=== PATIENT | female | born 1965 | race Caucasian/White ===

== ENCOUNTER → 2016-09-24 | Outpatient (CLI) | payer OTHER ==
[~2016-09-24] MED LIST: ARTH650T6 PO; BACL10TA PO; FLUO40CA PO; LEVO150T7 PO; LISI-519 PO; MELO-1 PO; MELO7.5T4 PO; METR0.7512 VAGINAL; OMEP20TA PO
[2016-09-24 09:50] LABS: AUTOMATED NEUTROPHIL # 4.8 TH/MM3 (1.8-7.7); BASOPHIL # 0.1 TH/MM3 (0-0.2); BASOPHIL % 1.2 % (0.0-2.0); EOSINOPHIL # 0.4 TH/MM3 (0-0.4); EOSINOPHIL % 5.4 % (0.0-4.0); HEMO FLAGS DIFF FINAL; LYMPH % 18.8 % (9.0-44.0); LYMPHOCYTE # 1.3 TH/MM3 (1.0-4.8); MEAN CELL VOLUME 90.3 FL (80.0-100.0); MEAN CORPUSCULAR HEMOGLOBIN 30.6 PG (27.0-34.0); MEAN CORPUSCULAR HGB CONC 33.9 % (32.0-36.0); MONO % 6.5 % (0.0-8.0); NEUT % 68.1 % (16.0-70.0); PLATELET COUNT 285 TH/MM3 (150-450); RED BLOOD COUNT 4.54 MIL/MM3 (4.00-5.30); RED CELL DISTRIBUTION WIDTH 13.5 % (11.6-17.2)
[2016-09-24 10:23] LABS: ANION GAP 5 MEQ/L (5-15); AST (GOT) 38 U/L (15-37); BICARBONATE 27.9 MEQ/L (21.0-32.0); BLOOD UREA NITROGEN 17 MG/DL (7-18); CHLORIDE 102 MEQ/L (98-107); GLOMERULAR FILTRATION RATE 95 ML/MIN (>89); GLUCOSE,FASTING 87 MG/DL (74-99); POTASSIUM 4.5 MEQ/L (3.5-5.1); SODIUM (NA) 135 MEQ/L (136-145)
[2016-09-24 10:34] LABS: ALKALINE PHOSPHATASE 91 U/L (45-117); ALT (GPT) 51 U/L (10-53); HDL CHOLESTEROL 56.1 MG/DL (40.0-60.0); LDL CHOLESTEROL 123 MG/DL (0-99); TOTAL BILIRUBIN ADULT 0.5 MG/DL (0.2-1.0)
[2016-09-24 11:20] LABS: HEMOGLOBIN A1a 1.1 %; HEMOGLOBIN A1b 1.8 %; HEMOGLOBIN Ao 85.3 %; HEMOGLOBIN P3 3.9 %
== END ==
LOC: CLAB 08:08
PROVIDERS: ATTEND Family Medicine
DX: G62.9 Polyneuropathy, unspecified (principal); Q45.3 Other congenital malformations of pancreas and pancreatic duct; E66.9 Obesity, unspecified
CPT/HCPCS: 36415; 80053; 80061; 83036; 84443; 85025

== ENCOUNTER → 2016-10-15 | Outpatient (CLI) | payer OTHER | LOC: CLAB 11:24 | PROVIDERS: ATTEND Internal Medicine Gastroenterology | DX: R59.1 Generalized enlarged lymph nodes (principal); K86.9 Disease of pancreas, unspecified | CPT/HCPCS: 36415; 82378; 86301; 86304 ==

== ENCOUNTER → 2016-11-19 | Outpatient (CLI) | payer OTHER ==
[~2016-11-19] MED LIST changes: -MELO7.5T4 PO; -METR0.7512 VAGINAL
== END ==
LOC: CLAB 12:11
PROVIDERS: ATTEND Nurse Practitioner Family
DX: E03.9 Hypothyroidism, unspecified (principal)
CPT/HCPCS: 36415; 84443

== ENCOUNTER → 2016-11-28 | Day surgery (SDC) | payer OTHER ==
[~2016-11-28] VITALS: Ht 160 cm; Wt 128.8 kg
[~2016-11-28] MED LIST changes: +*ONDANSETRON 4 MG VIAL PERIprocedural Use ONLY ONE; +*morphine SULFATE 8 MG/ML PERIprocedure ONLY ONE; +CHLORHEXIDINE GLUCONATE 2 % 1 PACK (2 CLOTHS) TOPICAL PRN; +DEXAMETHASONE SOD PHOS 4 MG/ML VIAL IV ONE; +DO NOT ADM ANY ANTICOAGULANT DRUGS PRN; +GLYCOPYRROLATE 1 MG/5 ML VIAL IV PUSH ONE; +INSULIN HUMAN REGULAR 1,000 UNITS/10 ML VIAL SQ PRN; +LACTATED RINGER'S 1000 ML IV PRN; +LIDOCAINE HCL 1% PF 5 ML AMPULE OTHER ONE; +METOPROLOL TARTRATE 25 MG TAB PO PRN; +NEOSTIGMINE 3 MG/3 ML SYR IV ONE; +ONDANSETRON HCL 4 MG/2 ML VIAL IV PUSH ONE; +PHENYLEPH/NS 1000 MCG/10 ML SYR IV ONE; +POVIDONE IODINE 5% (ANTISEPSIS KIT) 4 APPLICATIONS EACH NARE PRN; +PROPOFOL 200 MG/20 ML AMP IV ONE; +PROPOFOL 200 MG/20 ML AMP ONE; +ROCURONIUM INJ 50 MG/5 ML VIAL IV ONE; +SODIUM CHLORID 0.9% 500 ML IV PRN
--- NOTE | 2016-11-28 12:57 | PD.PROCEDR ---
GI Procedure PROCEDURE PERFORMED EUS with FNA INDICATION FOR PROCEDURE Abnormal imaging revealing multiple enlarged lymph nodes and a questionable pancreatic mass PROCEDURE: The procedure, risks and benefits were discussed with Ms. Irwin and informed consent was obtained. Anesthesia sedated her with Diprivan. She was placed in the left lateral decubitus position. Endoscopic ultrasound: The Pentax videoscope was introduced through the oropharynx and advanced to the second portion of the duodenum FINDINGS: The endosonographic appearance of the pancreas and the pancreatic duct was basically unremarkable in its head body and tail Mediastinal lymphadenopathy noted adjacent to the heart samples were obtained with fine-needle aspiration needle A para-aortic hypoechoic mass noted at the level of the celiac trunk of unclear significance more samples were taken from this area A hypoechoic mass noted in the hilar region measuring about 2 x 2 and a half adjacent to the portal vein and this too was biopsied with the FNA needle ESTIMATED BLOOD LOSS: None SPECIMENS REMOVED: Multiple lymph node biopsies COMPLICATIONS: None IMPRESSION: Unremarkable pancreas Multiple lymphadenopathies (mediastinal, para-aortic, and hilar) PLAN: Await biopsies Follow-up with GI in 3-4 weeks Con Myrick MD Nov 28, 2016 12:57
--- NOTE | 2016-11-28 13:45 | RADRPT ---
EXAM DATE/TIME: 11/28/2016 13:12 [facility] COMPARISON: No previous studies available for comparison. INDICATIONS : Upper abdomen pain after endoscopy ORAL CONTRAST: No oral contrast ingested. RADIATION DOSE: 15.58 CTDIvol (mGy) MEDICAL HISTORY : Hypertension. Uterin SURGICAL HISTORY : section. ENCOUNTER: Initial ACUITY: 1 day PAIN SCALE: 8/10 LOCATION: ABDOMEN TECHNIQUE: Volumetric scanning of the abdomen was performed. Using automated exposure control and adjustment of the mA and/or kV according to patient size, radiation dose was kept as low as reasonably achievable to obtain optimal diagnostic quality images. DICOM format image data is available electronically for review and comparison. FINDINGS: LOWER LUNGS: The visualized lower lungs are clear. LIVER: Homogeneous density without lesion. There is no dilation of the biliary tree. Ill-defined high densi ty material within the gallbladder which may reflect sludge +/- stones or blood products if biliary m anipulation was performed during endoscopy. SPLEEN: Normal size without lesion. PANCREAS: Within normal limits. KIDNEYS: Normal in size and shape. There is no contour deforming abnormality, stone, or hydronephrosis. ADRENAL GLANDS: Within normal limits. AORTA/RETROPERITONEAL: There is no aneurysm or lymphadenopathy. BOWEL/MESENTERY: The stomach and visualized small and large bowel demonstrate no abnormality. Specifically, no free ai r, pneumatosis, or free fluid. MUSCULOSKELETAL: Within normal limits for patient age. CONCLUSION: 1. No free air or evidence for bowel perforation status post endoscopy. 2. Ill-defined high density material within the gallbladder a reflect sludge +/- stones or less likel y blood products if biliary manipulation was performed during endoscopy. Ruddy Becerril MD on November 28, 2016 at 13:39 Board Certified Radiologist. This report was verified electronically.
[2016-11-28 14:24] VITALS: TEMP 97.6
[2016-11-28 14:55] VITALS: BP 127/58; PULSE 72; RESP 18; O2SAT 96
--- NOTE | 2016-11-28 21:37 | EKG ---
Date Performed: 11/28/2016 Time Performed: 09:47:02 PTAGE: 51 years EKG: Sinus rhythm LOW QRS VOLTAGE IN PRECORDIAL LEADS BORDERLINE ECG NO PREVIOUS TRACING DOCTOR: Bigg Collier Interpretating Date/Time 11/28/2016 21:36:26
== END | disposition home or self-care (01) ==
LOC: HSDC 08:29
PROVIDERS: ATTEND Internal Medicine Gastroenterology
DX: D36.0 Benign neoplasm of lymph nodes (principal); I10 Essential (primary) hypertension; R53.83 Other fatigue; R10.10 Upper abdominal pain, unspecified; Z87.891 Personal history of nicotine dependence
CPT/HCPCS: 00740; 43242; 74150; 93005; J1100; J2270; J2370; J2405; J2710; J3010; J7120

== ENCOUNTER → 2017-01-16 | Outpatient (CLI) | payer OTHER ==
[~2017-01-16] MED LIST changes: -*ONDANSETRON 4 MG VIAL PERIprocedural Use ONLY ONE; -*morphine SULFATE 8 MG/ML PERIprocedure ONLY ONE; -CHLORHEXIDINE GLUCONATE 2 % 1 PACK (2 CLOTHS) TOPICAL PRN; -DEXAMETHASONE SOD PHOS 4 MG/ML VIAL IV ONE; -DO NOT ADM ANY ANTICOAGULANT DRUGS PRN; -GLYCOPYRROLATE 1 MG/5 ML VIAL IV PUSH ONE; -INSULIN HUMAN REGULAR 1,000 UNITS/10 ML VIAL SQ PRN; -LACTATED RINGER'S 1000 ML IV PRN; -LIDOCAINE HCL 1% PF 5 ML AMPULE OTHER ONE; -MELO-1 PO; +MELO15TA20 PO; -METOPROLOL TARTRATE 25 MG TAB PO PRN; -NEOSTIGMINE 3 MG/3 ML SYR IV ONE; -OMEP20TA PO; +OMEP20TA93 PO; -ONDANSETRON HCL 4 MG/2 ML VIAL IV PUSH ONE; +PERC5TAB12 PO; -PHENYLEPH/NS 1000 MCG/10 ML SYR IV ONE; -POVIDONE IODINE 5% (ANTISEPSIS KIT) 4 APPLICATIONS EACH NARE PRN; -PROPOFOL 200 MG/20 ML AMP IV ONE; -PROPOFOL 200 MG/20 ML AMP ONE; -ROCURONIUM INJ 50 MG/5 ML VIAL IV ONE; -SODIUM CHLORID 0.9% 500 ML IV PRN
[2017-01-16 11:32] LABS: AUTOMATED NEUTROPHIL # 5.1 TH/MM3 (1.8-7.7); BASOPHIL # 0.1 TH/MM3 (0-0.2); BASOPHIL % 1.1 % (0.0-2.0); EOSINOPHIL # 0.2 TH/MM3 (0-0.4); EOSINOPHIL % 3.1 % (0.0-4.0); HEMATOCRIT 40.6 % (35.0-46.0); HEMO FLAGS DIFF FINAL; LYMPH % 23.4 % (9.0-44.0); LYMPHOCYTE # 1.8 TH/MM3 (1.0-4.8); MEAN CELL VOLUME 89.4 FL (80.0-100.0); MEAN CORPUSCULAR HEMOGLOBIN 30.6 PG (27.0-34.0); MEAN CORPUSCULAR HGB CONC 34.2 % (32.0-36.0); MONO % 6.7 % (0.0-8.0); NEUT % 65.7 % (16.0-70.0); PLATELET COUNT 316 TH/MM3 (150-450); RED BLOOD COUNT 4.55 MIL/MM3 (4.00-5.30); WHITE BLOOD COUNT 7.8 TH/MM3 (4.0-11.0)
[2017-01-16 11:39] LABS: APTT (PATIENT) 30.1 SEC (24.3-30.1)
[2017-01-16 11:52] LABS: ANION GAP 10 MEQ/L (5-15); AST (GOT) 35 U/L (15-37); BICARBONATE 20.5 MEQ/L (21.0-32.0); BLOOD UREA NITROGEN 13 MG/DL (7-18); CHLORIDE 104 MEQ/L (98-107); GLOMERULAR FILTRATION RATE 92 ML/MIN (>89); GLUCOSE,FASTING 103 MG/DL (74-99); POTASSIUM 4.2 MEQ/L (3.5-5.1); SODIUM (NA) 134 MEQ/L (136-145)
[2017-01-16 11:53] LABS: ALT (GPT) 41 U/L (10-53)
[2017-01-16 11:55] LABS: ALKALINE PHOSPHATASE 87 U/L (45-117); TOTAL BILIRUBIN ADULT 0.4 MG/DL (0.2-1.0)
--- NOTE | 2017-01-16 11:58 | RADRPT ---
EXAM DATE/TIME: 01/16/2017 11:31 [facility] COMPARISON: CT ABDOMEN W/O CONTRAST, November 28, 2016, 13:12. INDICATIONS : Evaluate for pneumonia, pneumothorax or communicable disease. Pre op for hysterectomy 01-27-17 MEDICAL HISTORY : Hypertension. SURGICAL HISTORY : section. ENCOUNTER: Initial ACUITY: 1 day PAIN SCORE: 0/10 LOCATION: Bilateral chest FINDINGS: PA and lateral views of the chest demonstrate a normal-sized cardiac silhouette. There is a focal par enchymal opacity in the left upper lobe. Otherwise, no effusion or pneumothorax is identified. Bones and soft tissues demonstrate no acute finding. CONCLUSION: Focal parenchymal opacity in the left upper lobe of uncertain etiology. One consideration is parenchy mal scar, therefore, correlating with older chest x-rays would be helpful. However, if none are avail able suggest chest CT for further characterization. Art Hough MD on January 16, 2017 at 11:54 Board Certified Radiologist. This report was verified electronically.
--- NOTE | 2017-01-18 13:12 | EKG ---
Date Performed: 01/16/2017 Time Performed: 10:57:00 PTAGE: 51 years EKG: Sinus rhythm PREVIOUS TRACING : 11/28/2016 09.47 Since previous tracing, QRS voltage slightly larger; but otherwise, no significant change. DOCTOR: Mario Atwood Interpretating Date/Time 01/18/2017 13:11:33
== END ==
LOC: CPRE 10:35
PROVIDERS: ATTEND Obstetrics & Gynecology Gynecologic Oncology
DX: Z01.810 Encounter for preprocedural cardiovascular examination (principal); Z01.811 Encounter for preprocedural respiratory examination; Z01.812 Encounter for preprocedural laboratory examination; C54.1 Malignant neoplasm of endometrium
CPT/HCPCS: 36415; 71020; 80053; 85025; 85610; 85730; 93005

== ENCOUNTER → 2017-03-25 | Outpatient (CLI) | payer OTHER ==
[2017-03-25 14:07] LABS: CREATININE 0.67 MG/DL (0.50-1.00)
== END ==
LOC: CLAB 12:57
PROVIDERS: ATTEND Internal Medicine Gastroenterology
DX: R10.9 Unspecified abdominal pain (principal); K86.9 Disease of pancreas, unspecified
CPT/HCPCS: 36415; 82565; 84520

== ENCOUNTER → 2017-04-04 | Outpatient (CLI) | payer OTHER ==
[~2017-04-04] MED LIST changes: +IOHEXOL 350 MG/ML 10 ML VIAL (for RAD DIAG) IVCONTRAST ONE
--- NOTE | 2017-04-04 14:53 | RADRPT ---
EXAM DATE/TIME: 04/04/2017 13:28 [facility] COMPARISON: CHEST PA & LAT, January 16, 2017, 11:31. CT ABDOMEN W/O CONTRAST, November 28, 2016, 13:12. INDICATIONS : Abdominal pain, pancreatic mass. IV CONTRAST: 97 cc Omnipaque 350 (iohexol) IV ORAL CONTRAST: Prescribed oral contrast ingested. RADIATION DOSE: 21.05 CTDIvol (mGy) MEDICAL HISTORY : Hypertension. Uterine cancer. SURGICAL HISTORY : Hysterectomy. section. ENCOUNTER: Initial ACUITY: 1 day PAIN SCALE: 5/10 LOCATION: abdomen TECHNIQUE: Volumetric scanning of the abdomen and pelvis was performed. Using automated exposure control and ad justment of the mA and/or kV according to patient size, radiation dose was kept as low as reasonably achievable to obtain optimal diagnostic quality images. DICOM format image data is available electro nically for review and comparison. FINDINGS: LOWER LUNGS: The visualized lower lungs are clear. LIVER: There are multiple tiny low density liver lesions identified the largest about a centimeter in size a nd most clustered in the dome of the right lobe. These are nonspecific, however, although the previou s study was a noncontrast exam, I believe its likely that these were present previously. SPLEEN: Normal size without lesion. PANCREAS: Within normal limits. KIDNEYS: Small cyst in the lower pole anterior cortex of the right kidney. No suspicious mass, stone or hydron ephrosis. ADRENAL GLANDS: Within normal limits. VASCULAR: There is no aortic aneurysm. BOWEL/MESENTERY: The stomach, small bowel, and colon demonstrate no acute abnormality. There is no free intraperitone al air or fluid. ABDOMINAL WALL: Within normal limits. RETROPERITONEUM: There are couple mildly enlarged celiac region lymph nodes which appear to been present previously bu t may be minimally more prominent the largest measuring just over 15 mm in size. An aortocaval lymph node just below the level of the left renal vein measures about 15 mm in size, also slightly increase d from prior exam. BLADDER: No wall thickening or mass. REPRODUCTIVE: Uterus surgically absent. No evidence of pelvic mass or free fluid. INGUINAL: There is no lymphadenopathy or hernia. MUSCULOSKELETAL: Within normal limits for patient age. CONCLUSION: Multiple tiny low density liver lesions were likely present previously however seen to better advanta ge on today's contrasted exam. Further characterization with hepatic MRI with Eovist would be recomme nded. Mildly prominent celiac region and para-aortic lymph nodes as described. Art Hartley MD on April 04, 2017 at 14:32 Board Certified Radiologist. This report was verified electronically.
== END ==
LOC: HRAD 12:05
PROVIDERS: ATTEND Internal Medicine Gastroenterology
DX: R10.9 Unspecified abdominal pain (principal); K86.9 Disease of pancreas, unspecified
CPT/HCPCS: 74177; Q9967

== ENCOUNTER → 2017-06-26 | Outpatient (CLI) | DX: R10.9 Unspecified abdominal pain (principal); K86.9 Disease of pancreas, unspecified ==

== ENCOUNTER → 2017-07-24 | Outpatient (CLI) | payer OTHER ==
[~2017-07-24] MED LIST changes: -IOHEXOL 350 MG/ML 10 ML VIAL (for RAD DIAG) IVCONTRAST ONE
--- NOTE | 2017-07-24 14:15 | RADRPT ---
EXAM DATE: 07/24/2017 1:45 PM EDT AGE/SEX: 52 years / Female INDICATIONS: Pain. Slip and fall about one year ago. CLINICAL DATA: This is the patient's initial encounter. Patient reports that signs and symptoms have been present for > 1 year and indicates a pain score of 8/10. MEDICAL/SURGICAL HISTORY: Hypertension. Hysterectomy. Tonsillectomy. section. Wrist sx. COMPARISON: No prior exams available for comparison. TECHNIQUE: Multiplanar, multisequence MRI of the lumbar spine was performed without contrast. Patie nt was scanned in a sitting position; neutral, flexion, and extension scans were performed in the sa gittal plane. FINDINGS: Vertebra: Homogeneous signal. Normal alignment. Conus: Normal level and configuration. A 1.6 cm cyst involving the right kidney anteriorly at the lower pole. T12-L1: The thecal sac has a normal diameter. No evidence of disc bulge or protrusion. The neural foramina are patent bilaterally. L1-L2: The thecal sac has a normal diameter. No evidence of disc bulge or protrusion. The neural foramina are patent bilaterally. L2-L3: The thecal sac has a normal diameter. No evidence of disc bulge or protrusion. The neural foramina are patent bilaterally. L3-L4: The thecal sac has a normal diameter. No evidence of disc bulge or protrusion. The neural foramina are patent bilaterally. L4-L5: Mild disc desiccation without disc space narrowing. The thecal sac has a normal diameter. N o evidence of disc bulge or protrusion. The neural foramina are patent bilaterally. L5-S1: The thecal sac has a normal diameter. No evidence of disc bulge or protrusion. The neural foramina are patent bilaterally. CONCLUSION: 1. Unremarkable exam. Electronically signed by: José Luis Aguirre MD 07/24/2017 2:13 PM EDT
== END ==
LOC: HRAD 12:54
PROVIDERS: ATTEND Family Medicine
DX: M54.5 Low back pain (principal); G89.29 Other chronic pain
CPT/HCPCS: 72148

== ENCOUNTER → 2017-07-24 | Outpatient (CLI) | payer OTHER ==
[2017-07-24 10:17] LABS: FOLATE GREATER THAN 20.0 NG/ML (3.1-17.5)
[2017-07-24 10:20] LABS: RHEUMATOID FACTOR SCREEN NEGATIVE (NEGATIVE)
== END ==
LOC: CLAB 08:48
DX: F33.8 Other recurrent depressive disorders (principal); M19.90 Unspecified osteoarthritis, unspecified site; Z11.59 Encounter for screening for other viral diseases
CPT/HCPCS: 36415; 80074; 82607; 82746; 84439; 84443; 86038; 86430

== ENCOUNTER 2017-09-18 10:49 | Observation (INO) ==
[2017-09-18] MEDS ORDERED: Sod Chloride 0.9% Inj 1,000 ML IV.SIG ONE (11:54)
--- NOTE | 2017-09-18 12:27 | ED ---
HPI General Chief complaint: Weakness Stated complaint: weakness Time Seen by Provider: 09/18/17 11:15 Source: patient Mode of arrival: ambulatory Limitations: no limitations History of Present Illness HPI Narrative: 52-year-old female that presents to the ED for evaluation of weakness. Going on since November but worsening the past week. Per patient she is "passing out" last time two days ago where she was possibly out for two hours. States weakness to her legs and feels like she is going to fall asleep at any time as well as pass out. Currently being worked up for possible cancer. Follows with Dr Arnold who is doing biopsies of patient lymph nodes which apparently showed positive on a PET scan recently performed. She was diagnosed with endometrial cancer and had a hysterectomy. Patient follows with Dr. Correa as well and apparently has had some lesions on her liver as well which were concerning and she had what appears to be biopsy did show changes consistent with cirrhosis and hepatitis C. They also noted that she had some lymph nodes that were inflamed and some of the bones as well as on the chest and neck of unclear etiology and this is where they are during the next biopsy. Per patient will be done until October. Per patient she has no insurance that she does not have a primary care doctor. Per patient she states that she feels like she is feeling when she had sepsis last time. She states that she has low grade temperatures. She feels like she has body aches. She denies any chest pain but states having some shortness of breath or comes all of a sudden. Denies any urinary or bowel movement issues. No other medical issues at this time. She does have a history of hypothyroidism. Per patient her pain currently is 6 out of 10 all over. Related Data Home Medications Medication Instructions Recorded Confirmed baclofen 10 mg PO DAILY 08/29/17 09/18/17 citalopram [Celexa] 10 mg PO DAILY 08/29/17 09/18/17 levothyroxine 1 tab PO DAILY 08/29/17 09/18/17 lisinopril 5 mg PO DAILY 08/29/17 09/18/17 omeprazole 1 cap PO DAILY 08/29/17 09/18/17 Allergies Allergy/AdvReac Type Severity Reaction Status Date / Time No Known Allergies Allergy Verified 09/18/17 11:16 Review of Systems ROS: all other systems reviewed are negative [facility] Medical History Medical History Arthritis (Acute) Endometrial cancer (Acute) GERD (gastroesophageal reflux disease) (Acute) Hepatitis C (Acute) History of hysterectomy (Acute) Hx of headache (Acute) Hypothyroidism (Acute) Presence of surgical screw in left hand (Acute) Sleep apnea (Acute) Surgical History Surgical History H/O eye surgery (Acute) Hx of tonsillectomy (Acute) Previous section (Acute) Social History Social History Substance History: No History of Abuse Second Hand Smoke Exposure: No Smoking Status: Former smoker Tobacco Type: Cigarettes How Often Do You Have a Drink Containing Alcohol: 2 to 4 times a month Recent Travel in [facility] within the Last 8 Weeks: No Recent Out of Country Travel within the Last 8 Weeks: No Immunization History Tetanus Immunization: >5 Years Hx Influenza Vaccine This Season: Yes Exam Narrative Exam Narrative: GENERAL: Well appearing but obese SKIN: Focused skin assessment warm/dry. HEAD: Atraumatic. Normocephalic. EYES: Pupils equal and round. No scleral icterus. No injection or drainage. ENT: No nasal bleeding or discharge. Mucous membranes pink and moist. Tongue is midline. No uvula deviation. NECK: Trachea midline. No JVD. CARDIOVASCULAR: Regular rate and rhythm. No murmur appreciated. RESPIRATORY: No accessory muscle use. Clear to auscultation. Breath sounds equal bilaterally. GASTROINTESTINAL: Abdomen soft, non-tender, nondistended. Hepatic and splenic margins not palpable. MUSCULOSKELETAL: No obvious deformities. No clubbing. No cyanosis. No edema. Full range of motion of the upper and lower extremities bilaterally. 2+ pulses bilaterally. NEUROLOGICAL: Awake and alert. No obvious cranial nerve deficits. Motor grossly within normal limits. Normal speech. PSYCHIATRIC: Appropriate mood and affect; insight and judgment normal. Course Initial Documented Vital Signs Temperature 98.3 F 09/18/17 11:00 Pulse Rate 98 H 09/18/17 11:00 Respiratory Rate 17 09/18/17 11:00 Blood Pressure 139/101 H 09/18/17 11:00 Pulse Oximetry 94 L 09/18/17 11:00 Last Documented Vital Signs Temperature 97.9 F 09/18/17 13:36 Pulse Rate 62 09/18/17 13:36 Respiratory Rate 20 09/18/17 13:36 Blood Pressure 113/70 09/18/17 13:36 Pulse Oximetry 98 09/18/17 13:36 Medical Decision Making REANNA Attestation REANNA supervised visit: Yes Attestation: I, Dr. light, have reviewed the advance practice practitioner's documentation and am in agreement, met with the patient face to face, made the diagnosis, and the medical decision making was done by me. *My assessment and Findings: 52-year-old female presents with weakness and shortness of breath. Patient getting extensive outpatient workup here in the ER found to have elevated troponin. CT pulmonary without PE. She will be admitted for further care. MDM Narrative Medical decision making narrative: 52-year-old female that presents to the ED for evaluation of weakness. Patient was properly examined and was found to have signs and symptoms consistent with weakness. Unclear etiology at this time. Labs and imaging ordered. Labs and imaging for the most part looked well with exception of positive d-dimmer and troponin. CTA ordered and negative for PE. Unclear etiology, but per patient on cardiac history. Recommendation is to admit the patient for further cardiac eval and possible oncology eval. patient agree with admission. Case discussed with the residents agreed admission to their service. Differential Diagnosis Differential Diagnosis: Generalized weakness versus sepsis versus UTI versus thyroid disease versus electrolyte abnormality versus cancer Medical Records Medical records reviewed: Yes I reviewed the patient's medical records. Lab Data Lab results reviewed: Yes I reviewed the patient's lab results. Lab results narrative: UA negative troponin of 0.19 d-dimmer slightly elevated Result diagrams: 09/18/17 12:00 09/18/17 12:00 Lab Results 09/18/17 09/18/17 09/18/17 Range/Units 12:00 12:00 12:00 WBC 7.2 (4.0-11.0) th/mm3 RBC 4.62 (4.00-5.30) mil/mm3 Hgb 13.9 (11.6-15.3) gm/dL Hct 41.0 (35.0-46.0) % MCV 88.9 (80.0-100.0) fL MCH 30.0 (27.0-34.0) pg MCHC 33.8 (32.0-36.0) % RDW 16.2 (11.6-17.2) % Plt Count 334 D (150-450) th/mm3 MPV 9.3 (7.0-11.0) fL Neut % (Auto) 49.9 (16.0-70.0) % Lymph % (Auto) 33.6 (9.0-44.0) % Coles % (Auto) 9.4 H (0.0-8.0) % Eos % (Auto) 4.8 H (0.0-4.0) % Baso % (Auto) 2.3 H (0.0-2.0) % Neut # (Auto) 3.6 (1.8-7.7) th/mm3 Lymph # (Auto) 2.4 (1.0-4.8) th/mm3 Coles # (Auto) 0.7 (0.0-0.9) th/mm3 Eos # (Auto) 0.3 (0.0-0.4) th/mm3 Baso # (Auto) 0.2 (0.0-0.2) th/mm3 WBC Differential . Differential Comment Auto diff final D-Dimer Quant (PE/DVT) 0.61 H (0.00-0.50) mg/L FEU Sodium 134 L (136-145) meq/L Potassium 4.6 (3.5-5.1) meq/L Chloride 102 (98-107) meq/L Carbon Dioxide 24.0 (21.0-32.0) meq/L Anion Gap 8 (5-15) meq/L BUN 13 (7-18) mg/dL Creatinine 0.70 (0.50-1.00) mg/dL Estimated GFR 89 (>89) mL/min Random Glucose 89 (74-106) mg/dL Lactic Acid (0.4-2.0) mmol/L Calcium 9.6 (8.5-10.1) mg/dL Magnesium 2.0 (1.5-2.5) mg/dL Total Bilirubin 0.5 (0.2-1.0) mg/dL AST 57 H (15-37) U/L ALT 44 (10-53) U/L Alkaline Phosphatase 88 (45-117) U/L Troponin I 0.15 H (0.02-0.05) ng/mL Total Protein 9.5 H (6.4-8.2) g/dL Albumin 3.6 (3.4-5.0) g/dL TSH 4.720 H (0.358-3.740) uIU/mL Urine Color (Yellw/Straw) Urine Clarity (Clear) Urine pH (5.0-8.5) Ur Specific Burton (1.002-1.035) Urine Protein (Neg-Trace) mg/dL Urine Glucose (UA) (Negative) mg/dL Urine Ketones (Negative) mg/dL Urine Occult Blood (Negative) Urine Nitrate (Negative) Urine Bilirubin (Negative) Urine Urobilinogen (Less than 2) mg/dL Ur Leukocyte Esterase (Negative) Urine RBC (0-3) /hpf Urine WBC (0-5) /hpf Ur Squamous Epith Cells (0-5) /hpf Urine Bacteria (None) /hpf Hyaline Casts (0-3) /lpf Micro UA Comment Urine Culture Comments 09/18/17 09/18/17 Range/Units 12:00 12:27 WBC (4.0-11.0) th/mm3 RBC (4.00-5.30) mil/mm3 Hgb (11.6-15.3) gm/dL Hct (35.0-46.0) % MCV (80.0-100.0) fL MCH (27.0-34.0) pg MCHC (32.0-36.0) % RDW (11.6-17.2) % Plt Count (150-450) th/mm3 MPV (7.0-11.0) fL Neut % (Auto) (16.0-70.0) % Lymph % (Auto) (9.0-44.0) % Coles % (Auto) (0.0-8.0) % Eos % (Auto) (0.0-4.0) % Baso % (Auto) (0.0-2.0) % Neut # (Auto) (1.8-7.7) th/mm3 Lymph # (Auto) (1.0-4.8) th/mm3 Coles # (Auto) (0.0-0.9) th/mm3 Eos # (Auto) (0.0-0.4) th/mm3 Baso # (Auto) (0.0-0.2) th/mm3 WBC Differential Differential Comment D-Dimer Quant (PE/DVT) (0.00-0.50) mg/L FEU Sodium (136-145) meq/L Potassium (3.5-5.1) meq/L Chloride (98-107) meq/L Carbon Dioxide (21.0-32.0) meq/L Anion Gap (5-15) meq/L BUN (7-18) mg/dL Creatinine (0.50-1.00) mg/dL Estimated GFR (>89) mL/min Random Glucose (74-106) mg/dL Lactic Acid 1.3 (0.4-2.0) mmol/L Calcium (8.5-10.1) mg/dL Magnesium (1.5-2.5) mg/dL Total Bilirubin (0.2-1.0) mg/dL AST (15-37) U/L ALT (10-53) U/L Alkaline Phosphatase (45-117) U/L Troponin I (0.02-0.05) ng/mL Total Protein (6.4-8.2) g/dL Albumin (3.4-5.0) g/dL TSH (0.358-3.740) uIU/mL Urine Color Yellow (Yellw/Straw) Urine Clarity Clear (Clear) Urine pH 6.0 (5.0-8.5) Ur Specific Burton 1.010 (1.002-1.035) Urine Protein Negative (Neg-Trace) mg/dL Urine Glucose (UA) Negative (Negative) mg/dL Urine Ketones Negative (Negative) mg/dL Urine Occult Blood Negative (Negative) Urine Nitrate Negative (Negative) Urine Bilirubin Negative (Negative) Urine Urobilinogen Less than 2 (Less than 2) mg/dL Ur Leukocyte Esterase Negative (Negative) Urine RBC Less than 1 (0-3) /hpf Urine WBC 1 (0-5) /hpf Ur Squamous Epith Cells 1 (0-5) /hpf Urine Bacteria Few H (None) /hpf Hyaline Casts 1 (0-3) /lpf Micro UA Comment Culture not ind Urine Culture Comments Culture not ind Imaging Data Attestation: I personally reviewed and interpreted this imaging study as follows : Radiologist's impression: Chest X-Ray 09/18/17 11:54 CONCLUSION: 1. Small area of vague nodularity again noted in the left midlung which may represent scarring. 2. No confluent infiltrates. Head CT 09/18/17 11:54 CONCLUSION: Negative noncontrast head CT. . Chest CTA 09/18/17 13:18 CONCLUSION: 1. No pulmonary embolus. 2. Widespread metastatic disease is again seen as described including numerous small nodules of both lungs. 3. Focal lingular consolidation is not significantly changed, nonhypermetabolic on the recent PET. 4. Small hiatal hernia. ECG Data Attestation: I personally reviewed and interpreted this ECG as follows: Interpretation: EKG shows sinus rhythm with no sign of acute ischemia or arrhythmia read by me and attending. No ST elevations. DC intervals are 176 ms Discharge Plan Discharge Disposition Patient Disposition: 30 Still Patient Discharge Details Diagnosis: Weakness, Elevated troponin I level Physicians Team ED Provider: Ayde Light ED Midlevel Provider: Missael Avina Primary Care Provider: UNKNOWN, Attending Provider: Andrea Larios Status ED Status: Admitted Observation Patient
--- NOTE | 2017-09-18 12:35 | XR ---
EXAM DATE: 09/18/2017 12:28 PM EDT AGE/SEX: 52 years / Female INDICATIONS: Shortness of breath and chest pain. History of metastatic uterine cancer. CLINICAL DATA: This is the patient's initial encounter. Patient reports that signs and symptoms have been present for 1 day and indicates a pain score of 3/10. MEDICAL/SURGICAL HISTORY: Hypertension. None. [place] [facility] [place]. . FINDINGS: A single AP view of the chest demonstrates the lungs to be symmetrically aerated without confluence i nfiltrate or effusion. There is vague nodularity again noted in the left mid lung. The cardiomediasti nal contours are unremarkable. Osseous structures are intact. CONCLUSION: 1. Small area of vague nodularity again noted in the left midlung which may represent scarring. 2. No confluent infiltrates. Electronically signed by: Jesús Lopez MD 09/18/2017 12:33 PM EDT
[2017-09-18 13:02] LABS: Baso # (Auto) 0.2 th/mm3 (0.0-0.2); Baso % (Auto) 2.3 % (0.0-2.0); Eos # (Auto) 0.3 th/mm3 (0.0-0.4); Eos % (Auto) 4.8 % (0.0-4.0); Hemoglobin 13.9 gm/dL (11.6-15.3); Lymph # (Auto) 2.4 th/mm3 (1.0-4.8); Lymph % (Auto) 33.6 % (9.0-44.0); Mean Corpuscular HGB Conc 33.8 % (32.0-36.0); Mean Corpuscular Volume 88.9 fL (80.0-100.0); Mean Platelet Volume 9.3 fL (7.0-11.0); Mono # (Auto) 0.7 th/mm3 (0.0-0.9); Mono % (Auto) 9.4 % (0.0-8.0); Neut # (Auto) 3.6 th/mm3 (1.8-7.7); Neut % (Auto) 49.9 % (16.0-70.0); Platelet Count 334 th/mm3 (150-450); Red Blood Count 4.62 mil/mm3 (4.00-5.30); Red Cell Distribution Width 16.2 % (11.6-17.2); White Blood Count 7.2 th/mm3 (4.0-11.0)
[2017-09-18 13:05] LABS: Bacteria,Urine Few /hpf; Bilirubin,Urine Negative (Negative); Clarity,Urine Clear (Clear); Color,Urine Yellow (Yellw/Straw); Glucose,Urine (UA) Negative (Negative); Hyaline Casts,Urine 1 /lpf (0-3); Leukocyte Esterase,Urine Negative (Negative); Nitrite,Urine Negative (Negative); Squamous Epithelial Cell,Urine 1 /hpf (0-5)
[2017-09-18 13:16] LABS: Alanine Aminotransferase 44 U/L (10-53)
[2017-09-18 13:25] LABS: Albumin 3.6 g/dL (3.4-5.0); Alkaline Phosphatase 88 U/L (45-117); Anion Gap 8 meq/L (5-15); Aspartate Aminotransferase 57 U/L (15-37); Blood Urea Nitrogen 13 mg/dL (7-18); Calcium 9.6 mg/dL (8.5-10.1); Chloride 102 meq/L (98-107); Glomerular Filtration Rate 89 mL/min (>89); Glucose,Random 89 mg/dL (74-106); Potassium 4.6 meq/L (3.5-5.1); Sodium 134 meq/L (136-145); Total Protein 9.5 g/dL (6.4-8.2); Troponin I 0.15 ng/mL (0.02-0.05)
--- NOTE | 2017-09-18 13:32 | CT ---
EXAM DATE: 09/18/2017 1:28 PM EDT AGE/SEX: 52 years / Female INDICATIONS: Weakness. Short of breath. Cephalgia. CLINICAL DATA: This is the patient's initial encounter. Patient reports that signs and symptoms have been present for 1 day and indicates a pain score of 2/10. MEDICAL/SURGICAL HISTORY: Hepatitis C. Endometrial cancer. Hysterectomy. RADIATION DOSE: 36.35 CTDI (mGy) COMPARISON: No prior exams available for comparison. TECHNIQUE: CT of the head without contrast. Using automated exposure control and adjustment of the mA and/or kV according to patient size, radiation dose was kept as low as reasonably achievable to ob tain optimal diagnostic quality images. DICOM format image data is available electronically for revi ew and comparison. FINDINGS: Cerebrum: The ventricles are normal for age. No evidence of midline shift, mass lesion, hemorrhage or acute infarction. No extraaxial fluid collections are seen. Posterior Fossa: The cerebellum and brainstem are intact. The 4th ventricle is midline. The cerebe llopontine angle is unremarkable. Extracranial: The visualized portion of the orbits is intact. Skull: The calvaria is intact. No evidence of skull fracture. CONCLUSION: Negative noncontrast head CT. . Electronically signed by: Art Mcdonald MD 09/18/2017 1:31 PM EDT
--- NOTE | 2017-09-18 14:46 | CT ---
EXAM DATE: 09/18/2017 2:28 PM EDT AGE/SEX: 52 years / Female INDICATIONS: Shortness of breath. CLINICAL DATA: This is the patient's initial encounter. Patient reports that signs and symptoms have been present for 1 day and indicates a pain score of 0/10. MEDICAL/SURGICAL HISTORY: . Endometrial cancer. Hysterectomy. RADIATION DOSE: 10.66 CTDI (mGy) COMPARISON: . TECHNIQUE: Volumetric scanning was performed using a multi-row detector CT scanner during bolus infu albert of 75 ml Omnipaque 350 (iohexol) nonionic water-soluble contrast as a single exam dose. The kathy a was post processed with a variety of visualization algorithms including full volume maximum intensi ty projection and sliding thin slab reformation. Using automated exposure control and adjustment of the mA and/or kV according to patient size, radiation dose was kept as low as reasonably achievable t o obtain optimal diagnostic quality images. DICOM format image data is available electronically for review and comparison. FINDINGS: There is no pulmonary embolus. Heart size stable, within normal limits. Parenchymal consolidation again seen lingular division of the left upper lobe, was not hypermetabolic on the recent PET. Widely scattered nodules of both lungs measuring up to 11 mm in size seen, likely metastatic. There is metastatic mediastinal, internal mammary and left axillary lymphadenopathy. No acute pneumonia. No pleural effusion or pneumothorax. Scattered sclerotic lesions are seen of the visualized osseous structures. Small hiatal hernia. CONCLUSION: 1. No pulmonary embolus. 2. Widespread metastatic disease is again seen as described including numerous small nodules of both lungs. 3. Focal lingular consolidation is not significantly changed, nonhypermetabolic on the recent PET. 4. Small hiatal hernia. Electronically signed by: Art Mcdonald MD 09/18/2017 2:44 PM EDT
--- NOTE | 2017-09-18 15:09 | P.HPFP ---
History of Present Illness Primary Care Physician: UNKNOWN History of Present Illness: Patient is a 52-year-old female with past history of hypothyroidism, hepatitis, hypertension, currently being worked up for metastatic cancer outpatient who presented for weakness. Patient reports for the past month she has had a weakness, shortness of breath, had chills. Shortness of breath is occasionally present while lying down, exacerbated by activity. She notes a temperature of 98.6 occasionally. Occasional headache. She believes her weakness has gotten worse over the past 2-3 weeks. Typically she sits in her chair, however when she washes dishes she gets tired. She reports balance issues. Typically walks with a cane, needs to hold onto things while walking. Currently she denies nausea, vomiting, fever, arm or jaw pain, diaphoresis. She has had occasional lightheadedness and dizziness at home. Denies diarrhea, occasional constipation. Denies change in urine color/smell/frequency, no dysuria. History: Medical Hepatitis Working up for metastatic cancer HTN Hypothyroid Endometrial cancer Surgical Hysterectomy 2018 Fibroadenoma removal in b/l breasts Plate in R arm from surgery Family Father: Triple bipass Mother: A-Fib, Parkinsons, Fibromyalgia, Uterine cancer Social EtOH:used to drink occasionally Smoking: Us to smoke 1 ppd for ~30 years, quit 4 years ago Drugs: Marijuana as a teenager - Diagnosis (1) Weakness (2) Troponin I above reference range (3) Hypothyroid (4) HTN (hypertension) Review of Systems Constitutional: Reports chills, Reports headache(s), Denies excessive sweating, Denies fever(s), Denies night sweats Eyes: Reports double vision (chronic), Reports requires corrective lenses, Denies blurry vision, Denies change in vision, Denies loss of vision Ears, Nose, Mouth, and Throat: Reports dry mouth, Denies hearing loss, Denies nosebleed, Denies mouth pain, Denies neck pain, Denies sinus pain Cardiovascular: Reports lightheadedness, Reports shortness of breath, Reports shortness of breath with activity, Reports shortness of breath when lying down, Denies chest pain, Denies chest pain at rest, Denies chest pain with activity, Denies generalized swelling, Denies radiating jaw, neck or arm pain, Denies rapid, pounding, or irregular heartbeat Respiratory: Denies chest congestion, Denies cough, Denies coughing up blood, Denies wheezing Gastrointestinal: Reports constipation, Denies black, tarry stools, Denies change in bowel habits, Denies change in stools, Denies loose stools, Denies nausea, Denies vomiting Genitourinary: Denies blood in urine, Denies painful urination Musculoskeletal: Reports body aches, Denies numbness, Denies tingling Skin/Breast: Denies redness, Denies skin ulcer, Denies sores Neurologic: Reports dizziness, Reports headache(s), Reports unsteadiness, Reports weakness, Denies abnormal speech, Denies confusion, Denies fainting, Denies lack of coordination, Denies memory loss, Denies other visual disturbances, Denies seizure-like activity Psychiatric: Denies anxiety, Denies confusion Endocrine: Denies excessive sweating, Denies flushing PMFSH - History History Provided By: Patient - Medical History Medical History: Medical History (Last Reviewed 09/18/17 @ 12:25 by MIGUEL Finley) Arthritis Endometrial cancer GERD (gastroesophageal reflux disease) Hepatitis C History of hysterectomy Hx of headache Hypothyroidism Presence of surgical screw in left hand Sleep apnea - Surgical History Surgical History: Surgical History (Last Reviewed 09/18/17 @ 12:25 by MIGUEL Finley) H/O eye surgery Hx of tonsillectomy Previous section - Tobacco History Second Hand Smoke Exposure: No Tobacco Use In Past 30 Days: No (quit 5 years ago) Smoking Status: Former smoker Tobacco Type: Cigarettes - Alcohol History How Often Do You Have a Drink Containing Alcohol: 2 to 4 times a month - Substance Use History Substance History: No History of Abuse - Travel History Recent Travel in the [place] Within the Last 8 Weeks: No Recent Travel Out of the Country Within the Last 8 Weeks: No - Immunization History Tetanus Immunization: >5 Years Hx Influenza Vaccine This Season: Yes Medications and Allergies Allergies Allergy/AdvReac Type Severity Reaction Status Date / Time No Known Allergies Allergy Verified 09/18/17 11:16 Home Medications Medication Instructions Recorded Confirmed Type baclofen 10 mg PO DAILY 08/29/17 09/18/17 History citalopram [Celexa] 10 mg PO DAILY 08/29/17 09/18/17 History levothyroxine 1 tab PO DAILY 08/29/17 09/18/17 History lisinopril 5 mg PO DAILY 08/29/17 09/18/17 History omeprazole 1 cap PO DAILY 08/29/17 09/18/17 History Exam Vital signs: Vital Signs 09/18/17 11:00 09/18/17 11:02 09/18/17 11:54 Temperature 98.3 F 98.1 F Pulse Rate 98 H 89 60 Respiratory Rate 17 20 Blood Pressure 139/101 H 115/74 Pulse Oximetry 94 L 97 98 09/18/17 13:36 Temperature 97.9 F Pulse Rate 62 Respiratory Rate 20 Blood Pressure 113/70 Pulse Oximetry 98 Intake & Output 09/17/17 09/18/17 09/18/17 18:59 06:59 18:59 Intake Total 1000 / 1000 Balance 1000 / 1000 Weight 129.727 kg Intake: IV 1000 / 1000 NS Inj 1,000 ML @ Wide Open IV. 1000 / 1000 SIG BOLUS ONE Rx#:[id number] Narrative: GENERAL: Patient lying in bed, no acute distress SKIN: Warm and dry. HEAD: Atraumatic. Normocephalic. EYES: Pupils equal and round. No scleral icterus. No injection or drainage. ENT: No nasal bleeding or discharge. Mucous membranes pink and moist. NECK: Trachea midline. No JVD. CARDIOVASCULAR: Regular rate and rhythm. RESPIRATORY: No accessory muscle use. Clear to auscultation. Breath sounds equal bilaterally. GASTROINTESTINAL: Abdomen soft, non-tender, nondistended. Hepatic and splenic margins not palpable. MUSCULOSKELETAL: Extremities without clubbing, cyanosis, or edema. No obvious deformities. NEUROLOGICAL: Awake and alert. No obvious cranial nerve deficits. Motor grossly within normal limits. Five out of 5 muscle strength in the arms. 4/5 in bilateral legs. Normal speech. PSYCHIATRIC: Appropriate mood and affect; insight and judgment normal. Results - Labs Result diagrams: 09/18/17 12:00 09/18/17 12:00 Abnormal lab results 09/18/17 09/18/17 09/18/17 Range/Units 12:00 12:00 12:00 Luna % (Auto) 9.4 H (0.0-8.0) % Eos % (Auto) 4.8 H (0.0-4.0) % Baso % (Auto) 2.3 H (0.0-2.0) % D-Dimer Quant (PE/DVT) 0.61 H (0.00-0.50) mg/L FEU Sodium 134 L (136-145) meq/L AST 57 H (15-37) U/L Troponin I 0.15 H (0.02-0.05) ng/mL Total Protein 9.5 H (6.4-8.2) g/dL TSH 4.720 H (0.358-3.740) uIU/mL Urine Bacteria (None) /hpf 09/18/17 Range/Units 12:27 Luna % (Auto) (0.0-8.0) % Eos % (Auto) (0.0-4.0) % Baso % (Auto) (0.0-2.0) % D-Dimer Quant (PE/DVT) (0.00-0.50) mg/L FEU Sodium (136-145) meq/L AST (15-37) U/L Troponin I (0.02-0.05) ng/mL Total Protein (6.4-8.2) g/dL TSH (0.358-3.740) uIU/mL Urine Bacteria Few H (None) /hpf Short CBC 09/18/17 Range/Units 12:00 WBC 7.2 (4.0-11.0) th/mm3 Hgb 13.9 (11.6-15.3) gm/dL Hct 41.0 (35.0-46.0) % Plt Count 334 D (150-450) th/mm3 BMP 09/18/17 12:00 Sodium 134 L Potassium 4.6 Chloride 102 Carbon Dioxide 24.0 BUN 13 Creatinine 0.70 Calcium 9.6 Cardiac Enzymes 09/18/17 Range/Units 12:00 Troponin I 0.15 H (0.02-0.05) ng/mL Liver Function 09/18/17 Range/Units 12:00 Total Bilirubin 0.5 (0.2-1.0) mg/dL AST 57 H (15-37) U/L ALT 44 (10-53) U/L Alkaline Phosphatase 88 (45-117) U/L Albumin 3.6 (3.4-5.0) g/dL Urine 09/18/17 Range/Units 12:27 Urine Color Yellow (Yellw/Straw) Urine Clarity Clear (Clear) Urine pH 6.0 (5.0-8.5) Ur Specific [place] 1.010 (1.002-1.035) Urine Protein Negative (Neg-Trace) mg/dL Urine Glucose (UA) Negative (Negative) mg/dL - Imaging Impressions Chest X-Ray 09/18/17 11:54 CONCLUSION: 1. Small area of vague nodularity again noted in the left midlung which may represent scarring. 2. No confluent infiltrates. Head CT 09/18/17 11:54 CONCLUSION: Negative noncontrast head CT. . Chest CTA 09/18/17 13:18 CONCLUSION: 1. No pulmonary embolus. 2. Widespread metastatic disease is again seen as described including numerous small nodules of both lungs. 3. Focal lingular consolidation is not significantly changed, nonhypermetabolic on the recent PET. 4. Small hiatal hernia. Caprini VTE Risk Assessment Caprin VTE Risk Assessment: Moderate/High Risk (score >= 2) Assessment and Plan - Assessment (1) Weakness Code(s): R53.1 - Weakness Status: Acute Plan: Patient with weakness for 1 month. Currently being worked up outpatient for potential metastatic cancer. Troponins elevated on admission. -Serial troponins -Serial EKGs -Consider oncology consult if continued stay -PT (2) Troponin I above reference range Code(s): R74.8 - Abnormal levels of other serum enzymes Status: Acute Plan: Troponins elevated to 0.15. -Trend troponins, see weakness (3) Hypothyroid Code(s): E03.9 - Hypothyroidism, unspecified Status: Acute Plan: History of hypothyroid -Continue home levothyroxine 150 mcg daily (4) HTN (hypertension) Code(s): I10 - Essential (primary) hypertension Status: Acute Plan: History of hypertension -Continue lisinopril 5 mg daily
[2017-09-18] MEDS: Heparin - SQ 10,000 UNITS/ML Vial SQ SCH (18:39)
[2017-09-18] MEDS ORDERED: Ibuprofen 400 MG Tablet PO PRN (18:43)
[2017-09-18] MEDS ORDERED: Naloxone Inj 0.4 MG/ML Vial IV.PUSH PRN (18:46)
[2017-09-18] MEDS ORDERED: Temazepam 15 MG Capsule PO PRN (21:00)
[2017-09-18] MEDS: Senna/Docusate Sodium 8.6/50 MG Tablet PO SCH (22:08)
[2017-09-19] MEDS: Heparin - SQ 10,000 UNITS/ML Vial SQ SCH ×2 (06:56→18:14)
[2017-09-19] MEDS: Levothyroxine 150 MCG Tablet PO SCH (06:56)
[2017-09-19 07:40] LABS: Baso # (Auto) 0.1 th/mm3 (0.0-0.2); Baso % (Auto) 1.2 % (0.0-2.0); Eos # (Auto) 0.3 th/mm3 (0.0-0.4); Eos % (Auto) 5.2 % (0.0-4.0); Hematocrit 38.2 % (35.0-46.0); Hemoglobin 12.6 gm/dL (11.6-15.3); Lymph # (Auto) 1.9 th/mm3 (1.0-4.8); Lymph % (Auto) 34.2 % (9.0-44.0); Mean Corpuscular Hemoglobin 29.4 pg (27.0-34.0); Mean Corpuscular Volume 89.1 fL (80.0-100.0); Mean Platelet Volume 8.8 fL (7.0-11.0); Mono # (Auto) 0.5 th/mm3 (0.0-0.9); Mono % (Auto) 9.2 % (0.0-8.0); Neut # (Auto) 2.8 th/mm3 (1.8-7.7); Neut % (Auto) 50.2 % (16.0-70.0); Platelet Count 301 th/mm3 (150-450); Red Blood Count 4.29 mil/mm3 (4.00-5.30); Red Cell Distribution Width 15.9 % (11.6-17.2); White Blood Count 5.6 th/mm3 (4.0-11.0)
[2017-09-19 07:45] LABS: Alanine Aminotransferase 38 U/L (10-53); Albumin 3.2 g/dL (3.4-5.0); Anion Gap 5 meq/L (5-15); Aspartate Aminotransferase 39 U/L (15-37); Carbon Dioxide 26.8 meq/L (21.0-32.0); Chloride 105 meq/L (98-107); Glomerular Filtration Rate Greater Than 89 mL/min (>89); Glucose,Random 91 mg/dL (74-106); Potassium 4.1 meq/L (3.5-5.1); Sodium 137 meq/L (136-145)
[2017-09-19 07:54] LABS: Alkaline Phosphatase 75 U/L (45-117); Blood Urea Nitrogen 13 mg/dL (7-18); Total Protein 8.3 g/dL (6.4-8.2); Troponin I 0.13 ng/mL (0.02-0.05)
[2017-09-19] MEDS ORDERED: OMEPRAZOLE PO SCH (09:00)
[2017-09-19] MEDS: Senna/Docusate Sodium 8.6/50 MG Tablet PO SCH ×2 (09:42→21:59)
[2017-09-19] MEDS: Pantoprazole Sodium 20 MG DR Tablet PO SCH (09:42)
[2017-09-19] MEDS: Lisinopril 5 MG Tablet PO SCH (09:42)
[2017-09-19] MEDS: Citalopram 20 MG Tablet PO SCH (09:43)
[2017-09-19] MEDS: Baclofen 10 MG Tablet PO SCH (12:57)
--- NOTE | 2017-09-19 14:25 | P.PNFP ---
Subjective Interval history: Attending note very pleasant 52-year-old woman from [facility] with a past medical history of hypothyroidism, hepatitis C from a blood transfusion in the early , hypertension, who is status post EMMA/BSO in January 2017 for stage I endometrial carcinoma and a history of generalized lymphadenopathy noted on a recent PET/CT raising a question of metastatic disease admitted with "weakness ". Over the last months she has had episodes of shortness of breath, "chills ", general weakness, uses a cane for walking. Appetite fair, thinks she has gained some weight. Recently moved to [place] to take care of her parents, her mother subsequently had knee surgery, developed an infection and , she is not taking care of her father. There has been some situational stress. Please refer to the resident's history and physical for complete discussion of past medical history, family history, social history and review of systems. Results - Labs Result diagrams: 09/19/17 06:47 09/19/17 07:04 Abnormal lab results 09/18/17 09/18/17 09/19/17 Range/Units 16:26 23:29 06:47 Vernon % (Auto) 9.2 H (0.0-8.0) % Eos % (Auto) 5.2 H (0.0-4.0) % AST (15-37) U/L Troponin I 0.13 H 0.13 H (0.02-0.05) ng/mL Total Protein (6.4-8.2) g/dL Albumin (3.4-5.0) g/dL 09/19/17 Range/Units 07:04 [place] % (Auto) (0.0-8.0) % Eos % (Auto) (0.0-4.0) % AST 39 H (15-37) U/L Troponin I 0.13 H (0.02-0.05) ng/mL Total Protein 8.3 H D (6.4-8.2) g/dL Albumin 3.2 L (3.4-5.0) g/dL Short CBC 09/19/17 Range/Units 06:47 WBC 5.6 (4.0-11.0) th/mm3 Hgb 12.6 (11.6-15.3) gm/dL Hct 38.2 (35.0-46.0) % Plt Count 301 (150-450) th/mm3 BMP 09/19/17 09/19/17 07:04 07:04 Sodium Cancelled 137 Potassium Cancelled 4.1 Chloride Cancelled 105 Carbon Dioxide Cancelled 26.8 BUN Cancelled 13 Creatinine Cancelled 0.65 Calcium Cancelled 9.0 Cardiac Enzymes 09/18/17 09/18/17 09/19/17 Range/Units 16:26 23:29 07:04 Troponin I 0.13 H 0.13 H 0.13 H (0.02-0.05) ng/mL Liver Function 09/19/17 09/19/17 Range/Units 07:04 07:04 Total Bilirubin Cancelled 0.5 AST Cancelled 39 H ALT Cancelled 38 Alkaline Phosphatase Cancelled 75 Albumin Cancelled 3.2 L - Imaging Impressions Chest CTA 09/18/17 13:18 CONCLUSION: 1. No pulmonary embolus. 2. Widespread metastatic disease is again seen as described including numerous small nodules of both lungs. 3. Focal lingular consolidation is not significantly changed, nonhypermetabolic on the recent PET. 4. Small hiatal hernia. Physical Exam Vital signs: Vital Signs 09/18/17 15:37 09/18/17 16:00 09/18/17 17:32 Temperature 97.9 F 97.7 F 97.8 F Pulse Rate 70 68 68 Respiratory Rate 20 18 18 Blood Pressure 136/80 124/83 130/67 Pulse Oximetry 98 98 98 09/18/17 17:54 09/18/17 20:00 09/19/17 00:00 Temperature 97.6 F 97.5 F L 98.2 F Pulse Rate 74 82 88 Respiratory Rate 18 18 18 Blood Pressure 152/100 H 108/69 107/77 Pulse Oximetry 98 96 96 09/19/17 02:15 09/19/17 04:00 09/19/17 07:03 Temperature 98.2 F Pulse Rate 88 84 74 Respiratory Rate 17 Blood Pressure 98/63 L Pulse Oximetry 97 09/19/17 08:00 09/19/17 12:00 Temperature 98.0 F 97.4 F L Pulse Rate 75 80 Respiratory Rate 16 16 Blood Pressure 121/81 84/57 L Pulse Oximetry 96 95 Intake & Output 09/18/17 09/19/17 09/19/17 18:59 06:59 18:59 Intake Total 1000 / 1000 / 221 Balance 1000 / 1000 / Weight 129.727 kg 129.727 kg Intake: IV 1000 / 1000 NS Inj 1,000 ML @ Wide Open IV. 1000 / 1000 SIG BOLUS ONE Rx#:[id number] Oral Other: # Voids 1 Date of Last Bowel Movement 09/17/17 Weight On Admission 129.727 kg Narrative: Vital signs noted. Afebrile. General appearance Pleasant middle-aged woman who makes good eye contact, normal affect, in no acute distress. HEENT: Nonlocalizing. Lungs: Clear to auscultation. Cardiac: S1-S2, no S3 or murmurs. Abdomen: Soft and somewhat protuberant, nonspecific tenderness to palpation deeply in different areas. No rebound referred, no masses. No organomegaly. Extremities: Large brawny type edema/adipose tissue, feet are warm and dry, intact pedal pulses. Neurologic exam: Grossly nonlocalizing. Assessment and Plan - Assessment (1) Weakness Code(s): R53.1 - Weakness Status: Acute Plan: Patient with weakness for 1 month. Currently being worked up outpatient for potential metastatic cancer. Troponins elevated on admission. -Serial troponins -Serial EKGs -Consider oncology consult if continued stay -PT (2) Troponin I above reference range Code(s): R74.8 - Abnormal levels of other serum enzymes Status: Acute Plan: Troponins elevated to 0.15. -Trend troponins, see weakness (3) Hypothyroid Code(s): E03.9 - Hypothyroidism, unspecified Status: Acute Plan: History of hypothyroid -Continue home levothyroxine 150 mcg daily (4) HTN (hypertension) Code(s): I10 - Essential (primary) hypertension Status: Acute Plan: History of hypertension -Continue lisinopril 5 mg daily - Assessment and Plan Clinical assessment complicated patient with history of hypothyroidism, hepatitis C, hypertension, scattered generalized lymphadenopathy etiology of which is unclear, recent surgery January 2017 for endometrial carcinoma stage I admitted with generalized weakness. No acute findings are evident, will work to transition to outpatient evaluation. Note is made that the patient has no insurance, resources are limited. She will be seen in the [facility] for follow-up in 2 weeks. Explained to the patient that the definitive evaluation would include removing an intact lymph node for pathologic examination. Patient has had some needle biopsies of hilar, mediastinal, other lymph nodes which have been inconclusive. Dr. Arnold is to do an endoscopic ultrasound on October 02, 2017 for a lymph node noted to be present in the abdomen. Clinically does not appear to have signs or symptoms of metastatic disease. Case discussed at length with the resident team, will work toward discharge and outpatient follow-up.
--- NOTE | 2017-09-19 14:38 | ECG ---
Date Performed: 09/19/2017 Time Performed: 00:00:51 PTAGE: 52 years EKG: Sinus rhythm NORMAL ECG Since the PREVIOUS TRACING , no significant change noted PREVIOUS TRACIN09/18/2017 16.56 DOCTOR: Rashawn Montes Interpretating Date/Time 09/19/2017 14:34:54
--- NOTE | 2017-09-19 14:38 | ECG ---
Date Performed: 09/18/2017 Time Performed: 16:56:16 PTAGE: 52 years EKG: Sinus rhythm LOW QRS VOLTAGE IN PRECORDIAL LEADS BORDERLINE ECG Since the PREVIOUS TRACING , no significant change noted PREVIOUS TRACIN09/18/2017 12.18 DOCTOR: Rashawn Montes Interpretating Date/Time 09/19/2017 14:34:31
--- NOTE | 2017-09-19 14:38 | ECG ---
Date Performed: 09/18/2017 Time Performed: 12:18:27 PTAGE: 52 years EKG: Sinus rhythm LOW QRS VOLTAGE IN PRECORDIAL LEADS BORDERLINE ECG Since the PREVIOUS TRACING , no significant change noted PREVIOUS TRACIN01/16/2017 10.57 DOCTOR: Rashawn Montes Interpretating Date/Time 09/19/2017 14:34:20
[2017-09-20] MEDS: Heparin - SQ 10,000 UNITS/ML Vial SQ SCH (05:29)
[2017-09-20] MEDS: Levothyroxine 150 MCG Tablet PO SCH (05:32)
[2017-09-20] MEDS: Baclofen 10 MG Tablet PO SCH (09:20)
[2017-09-20] MEDS: Senna/Docusate Sodium 8.6/50 MG Tablet PO SCH (09:20)
[2017-09-20] MEDS: Citalopram 20 MG Tablet PO SCH (09:20)
[2017-09-20] MEDS: Pantoprazole Sodium 20 MG DR Tablet PO SCH (09:20)
[2017-09-20] MEDS: Lisinopril 5 MG Tablet PO SCH (09:21)
--- NOTE | 2017-09-20 09:27 | ECG ---
Date Performed: 09/19/2017 Time Performed: 04:12:04 PTAGE: 52 years EKG: Sinus rhythm NORMAL ECG PREVIOUS TRACING : 09/19/2017 00.00 DOCTOR: Fito Karimi Interpretating Date/Time 09/20/2017 09:26:52
--- NOTE | 2017-09-20 10:37 | P.PNFP ---
Subjective Interval history: Patient seen and examined today. No acute events overnight. Denies nausea, vomiting, fever, chills, abdominal pain, chest pain, shortness of breath, lightheadedness, dizziness, left arm or jaw pain. Leg strength improved today. No other complaints today. Patient's father in room during exam, cordial, patient without significant distress. Results - Labs Result diagrams: 09/19/17 06:47 09/19/17 07:04 Physical Exam Vital signs: Vital Signs 09/19/17 12:00 09/19/17 15:37 09/19/17 23:46 Temperature 97.4 F L 97.5 F L 97.8 F Pulse Rate 80 85 80 Respiratory Rate 16 16 16 Blood Pressure 84/57 L 105/71 117/71 Pulse Oximetry 95 95 94 L 09/20/17 04:00 09/20/17 07:45 Temperature 98.0 F 98.3 F Pulse Rate 77 79 Respiratory Rate 18 16 Blood Pressure 87/54 L 109/70 Pulse Oximetry 95 94 L Intake & Output 09/19/17 09/20/17 09/20/17 18:59 06:59 18:59 Intake Total 960 / 960 Output Total 550 / 550 Balance 410 / 410 Intake: Oral 960 / 960 Output: Urine 550 / 550 Other: # Voids 3 Date of Last Bowel Movement 09/17/17 Narrative: GENERAL: Patient lying in bed, no acute distress SKIN: Warm and dry. HEAD: Atraumatic. Normocephalic. EYES: Pupils equal and round. No scleral icterus. No injection or drainage. ENT: No nasal bleeding or discharge. Mucous membranes pink and moist. NECK: Trachea midline. No JVD. CARDIOVASCULAR: Regular rate and rhythm. RESPIRATORY: No accessory muscle use. Clear to auscultation. Breath sounds equal bilaterally. GASTROINTESTINAL: Abdomen soft, non-tender, nondistended. Hepatic and splenic margins not palpable. MUSCULOSKELETAL: Extremities without clubbing, cyanosis, or edema. No obvious deformities. NEUROLOGICAL: Awake and alert. No obvious cranial nerve deficits. Motor grossly within normal limits. Five out of 5 muscle strength in the arms and legs Assessment and Plan - Assessment (1) Weakness Code(s): R53.1 - Weakness Status: Acute Plan: Patient with weakness for 1 month. Currently being worked up outpatient for potential metastatic cancer. Troponins elevated on admission. -Troponins remained mildly elevated, not uptrending, likely not secondary to acute cardiac issues -PT (2) Troponin I above reference range Code(s): R74.8 - Abnormal levels of other serum enzymes Status: Acute Plan: Troponins elevated to 0.13. -weakness (3) Hypothyroid Code(s): E03.9 - Hypothyroidism, unspecified Status: Acute Plan: History of hypothyroid -Continue home levothyroxine 150 mcg daily (4) HTN (hypertension) Code(s): I10 - Essential (primary) hypertension Status: Acute Plan: History of hypertension -Continue lisinopril 5 mg daily
--- NOTE | 2017-09-20 12:27 | P.DCO ---
- Diagnosis (1) Hypothyroid (2) HTN (hypertension) - Physical Therapy Order: Evaluate and treat - Home Health Nursing Order: Medical education, Signs/symptoms of disease process, Nursing assessment with vital signs - Certification I have seen patient Preeti Irwin on 09/20/17. My clinical findings support the need for the requested home health care services because: Limited mobility due to disease progression, Deconditioned with increased weakness I certify that my clinical findings support that this patient is homebound because: Unsteady gait/balance (1) Hypothyroid Qualifiers: Hypothyroidism type: other Qualified Code(s): E03.8 - Other specified hypothyroidism (2) HTN (hypertension) Qualifiers: Hypertension type: unspecified Qualified Code(s): I10 - Essential (primary) hypertension
== END 2017-09-20 15:43 | disposition home or self-care (01) ==
LOC: NEDA 10:49 → NEPHCDU 10:49 → NEPE 10:49 → NEPHCDU 17:30
PROVIDERS: ADMIT Family Medicine; ATTEND Family Medicine
DX: G47.30 Sleep apnea, unspecified; Z87.891 Personal history of nicotine dependence; R74.8 Abnormal levels of other serum enzymes; E66.9 Obesity, unspecified; K44.9 Diaphragmatic hernia without obstruction or gangrene; B19.20 Unspecified viral hepatitis C without hepatic coma; R06.02 Shortness of breath; Z79.899 Other long term (current) drug therapy; R53.1 Weakness; R51 Headache; K21.9 Gastro-esophageal reflux disease without esophagitis; R42 Dizziness and giddiness; R68.83 Chills (without fever); I10 Essential (primary) hypertension; C54.1 Malignant neoplasm of endometrium; R91.8 Other nonspecific abnormal finding of lung field; E03.8 Other specified hypothyroidism; R26.81 Unsteadiness on feet; M19.90 Unspecified osteoarthritis, unspecified site